=== PATIENT | male | born 1985 | race Caucasian/White ===

== ENCOUNTER 2022-10-04 04:47 | Day surgery (SDC) | payer OTHER ==
[2022-10-03 12:18] VITALS: BMI 26.1
[2022-10-04 09:48] VITALS: TEMP 100
[2022-10-04 14:23] VITALS: BP 100/61; PULSE 52; RESP 18
== END 2022-10-04 10:40 | disposition home or self-care (01) ==
LOC: JASU-ENDO 04:47
PROVIDERS: ATTEND Student in an Organized Health Care Education/Training Program
PROC: 0DBP8ZX Excision of Rectum, Via Natural or Artificial Opening Endoscopic, Diagnostic (ICD-10-PCS; principal; 2022-10-04 09:30)
DX: Z12.11 Encounter for screening for malignant neoplasm of colon (principal); D12.8 Benign neoplasm of rectum; K59.89 Other specified functional intestinal disorders; D64.9 Anemia, unspecified; Z80.0 Family history of malignant neoplasm of digestive organs
CPT/HCPCS: 88305-TC